=== PATIENT | male | born 1985 | race Caucasian/White ===

== ENCOUNTER 2020-04-11 16:56 | Outpatient (REF) | payer OTHER, SELFPAY ==
[2020-04-11 17:42] LABS: COVID-19 Test Negative (Negative)
== END 2020-04-11 16:57 | disposition home or self-care (01) ==
LOC: HO.LAB 16:56
PROVIDERS: Visit Provider Internal Medicine
DX: Z20.828 Contact with and (suspected) exposure to other viral communicable diseases (principal)
CPT/HCPCS: 87635; C9803

== ENCOUNTER → 2020-05-24 10:50 | Outpatient (BNVA) | payer OTHER, SELFPAY | PROVIDERS: PCP Physician Assistant; Referring Provider Physician Assistant; Visit Provider Surgery | DX: Z76.89 Persons encountering health services in other specified circumstances (principal) ==

== ENCOUNTER → 2020-06-22 14:49 | Outpatient (REF) | payer OTHER, SELFPAY ==
--- NOTE | 2020-06-22 14:54 | CA_ITS ---
Transthoracic Echocardiogram Patient (Last, First, Middle): Karlo Lozano R Gender: Male Date of : 1985 Age: 35 Procedure Date: 06/22/2020 Procedure Type: Transthoracic Echocardiogram Location: OP Height: 177.8 cm Weight: 185.98 kg BSA: 2.83 m2 Heart Rate: bpm BP: 154 / 78 mmHg Lean Leader: Referring MD: Robert Simpson PA-C Route Supervisor: Nixon Mccoy MD Symptoms: R06.02 - Shortness of breath Study Quality: Fair ECG Rhythm: Sinus Conclusions: - Essentially normal study Findings Left Ventricle Normal left ventricular size, thickness, and systolic function. The visually estimated ejection fraction is between 60-65%. Regional wall motion abnormalities can not be excluded due to suboptimal endocardial definition. Diastolic function is normal for age. Right Ventricle Normal right ventricular cavity size and systolic function. Atria The left atrium is normal in size. Interatrial shunt cannot be excluded. The right atrium was not well visualized. Aortic Valve The aortic valve structure and function is likely normal. There is no aortic valve stenosis. There is no aortic valve regurgitation. Mitral Valve Normal mitral valve structure and function. There is no mitral valve regurgitation. There is no mitral valve stenosis. Pulmonic Valve The pulmonic valve was not well visualized. Tricuspid Valve Likely normal tricuspid valve structure and function. There is trace tricuspid valve regurgitation. The right ventricular systolic pressure is normal. The right ventricular systolic pressure is 21 mmHg. There is no evidence of pulmonary hypertension. Great Vessels All visible segments of the aorta are normal in size. The pulmonary artery was not well visualized. Venous The inferior vena cava was not well visualized. Pericardium/Pleural There is no evidence of pericardial effusion. Prior Study Comparison No prior study available for comparison. Measurements 2D Linear Measurements IVSd: 1.20 0.6-0.9/0.6-1.0 cm LVIDd: 4.36 3.9-5.3/4.2-5.9 cm LVIDd Index: 1.54 2.4-3.2/2.2-3.1 cm/m2 LVIDs: 2.42 2.0-3.6 cm LVPWd: 1.26 0.7-1.1 cm Ao Root: 2.90 2.1-3.5 cm LA Diam: 3.30 2.7-3.8/3.0-4.0 cm LAIDs Index: 1.17 1.5-2.3 cm/m2 LV Mass: 243.71 67-162/88-224 g LV Mass Index: 86.12 43-95/49-115 g/m2 LVOT Diam: 2.20 3.0+(-)1.3 cm Mitral Valve MV Pk E: 0.94 MV PK A: 0.65 MV Decel Time: 162.00 E/A: 1.40 E'Lateral: 11.60 E'Medial: 15.00 E/E' Med: 6.20 E/E' Lat: 8.10 PHT: 47.00 MVA PHT: 4.68 Decel Laurel: 5.78 Aortic Valve AoV Pk Arsen: 1.55 AoV Mn Arsen: 0.97 AoV VTI: 0.27 AoV Pk Grad: 10.00 Aov Mn Grad: 5.00 OLEKSANDR Cont.VTI: 3.66 LVOT LVOT Pk Arsen: 1.40 LVOT Mn Arsen: 0.92 LVOT VTI: 0.26 LVOT Pk Grad: 8.00 LVOT Mn Grad: 4.00 LVOT Diam: 2.20 LVOT Area: 3.80 Diastolic Function MV Pk E: 0.94 MV Pk A: 0.65 E/A: 1.40 E'Medial: 15.00 E/E' Med: 6.20 E' Laterial: 11.60 E/E' Lat: 8.10 Tricuspid Valve TR Pk Arsen: 2.14 TR Pk Grad: 18.00 RA Press: 3.00 RVSP: 21.00 Great Vessels Aorta Ao Root-2D: 2.90 2.0-3.7 cm Pulmonary Valve PV Pk Arsen: 1.78 Peak PV Grad: 13.00 Updated in Other Vendor System with Status of Final Nixon Mccoy MD electronically signed on 06/22/2020 4:38:28 PM with status of Final
== END ==
LOC: HO.CARD 14:49
PROVIDERS: Visit Provider Physician Assistant
DX: R06.02 Shortness of breath (principal)
CPT/HCPCS: 93306

== ENCOUNTER 2020-09-25 08:11 | Outpatient (REF) | payer OTHER, SELFPAY ==
[2020-09-25 08:38] LABS: COVID-19 Test Negative (Negative); IDNOW Serial# 55D5AD1C
== END 2020-09-25 08:12 | disposition home or self-care (01) ==
LOC: HO.EMPCOV 08:11
PROVIDERS: Visit Provider Internal Medicine
DX: Z20.822 Contact with and (suspected) exposure to COVID-19 (principal)
CPT/HCPCS: 36415; 87635; C9803